=== PATIENT | male | born 1990 | race Asian ===

== ENCOUNTER → 2021-09-01 | Outpatient (CLI) | LOC: M SOG 15:07 | PROVIDERS: ATTEND Orthopaedic Surgery Hand Surgery | DX: M25.531 Pain in right wrist (principal) ==

== ENCOUNTER → 2021-10-21 | Outpatient (CLI) | payer OTHER | LOC: M PLARAD 14:06 | PROVIDERS: ATTEND Orthopaedic Surgery Hand Surgery | DX: M67.431 Ganglion, right wrist (principal); Z53.8 Procedure and treatment not carried out for other reasons ==

== ENCOUNTER → 2021-12-02 | Outpatient (CLI) | payer OTHER | LOC: M PLARAD 12:55 | PROVIDERS: ATTEND Orthopaedic Surgery Hand Surgery | DX: M67.431 Ganglion, right wrist (principal) ==

== ENCOUNTER → 2021-12-21 | Outpatient (CLI) | payer OTHER | LOC: M PLAIMG 13:46 | PROVIDERS: ATTEND Physician Assistant | DX: M51.36 Other intervertebral disc degeneration, lumbar region (principal) ==

== ENCOUNTER → 2022-01-17 | Outpatient (CLI) | payer OTHER | LOC: M RAD 09:30 | PROVIDERS: ATTEND Orthopaedic Surgery Hand Surgery | DX: M67.431 Ganglion, right wrist (principal) ==